=== PATIENT | male | born 1935 | race Caucasian/White ===

== ENCOUNTER 2023-10-25 20:52 | Inpatient (IN) | payer OTHER, SELFPAY ==
[2023-10-25] VITALS (19 sets, daily range): BP systolic 80–137; BP diastolic 40–65; BMI 20.3; BMI 20.1
[2023-10-25 14:37] LABS: % Basophils 0.3 % (0-2); % Eosinophils 0.3 % (0-6); % Immature Granulocytes 0.4 % (0-0.5); % Lymphocytes 10.2 % (20.5-51.1); % Monocytes 6.4 % (1.7-9.3); % Neutrophils 82.4 % (42.2-75.2); Absolute Immature Granulocytes 0.1 10^3/uL (0-0.05); Absolute Lymphocytes 1.3 10^3/uL (1.2-3.4); Absolute Monocytes 0.8 10^3/uL (0.1-0.6); Absolute Neutrophils 10.3 10^3/uL (1.4-6.5); Hematocrit 35.5 % (39.0-52.0); Hemoglobin 12.3 g/dL (13.0-18.0); Mean Corp Hgb Conc. 34.6 g/dL (33.0-37.0); Mean Corpuscular Hgb 32.5 pg (27.0-31.0); Mean Corpuscular Volume 93.9 fL (80.0-94.0); Mean Platelet Volume 9.4 fL (7.4-10.4); Nucleated Red Blood Cells % 0 % (-); Platelet Count 267 10^3/uL (130-400); Red Blood Cell Count 3.78 10^6/uL (4.70-6.10); Red Cell Dist. Width 13.4 % (11.5-14.5); White Blood Cell Count 12.5 10^3/uL (4.8-10.8)
[2023-10-25 14:52] LABS: ALT (SGPT) 13 U/L (0-50); AST (SGOT) 18 U/L (17-59); Albumin 4.6 g/dl (3.5-5.0); Alkaline Phosphatase 68 U/L (38-126); Blood Urea Nitrogen 80 mg/dl (9-20); Calcium 9.8 mg/dl (8.4-10.2); Carbon Dioxide 20 mmol/L (22-30); Chloride 105 mmol/L (98-107); Glucose 112 mg/dl (70-99); Potassium 4.9 mmol/L (3.5-5.1); Sodium 137 mmol/L (135-145); Total Bilirubin 0.7 mg/dl (0.2-1.3); eGFR 22.26
[2023-10-25] MEDS: NSS 1000 IV (15:37)
[2023-10-25] MEDS: OMNIPAQUE 50 ML PO (16:41)
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
--- NOTE | 2023-10-25 19:40 | HPS.HSE ---
Addendum entered and electronically signed by Favian Reyes DO 10/25/23 21:51:
Patient seen and examined independently. Agree with findings and plan as set forth by IZZY Dee.
Patient is an 88y M with PMH significant for dementia who lives alone and who presents for evaluation of generalized weakness, bloody diarrhea and increased confusion. Patient is unsure why he is here or how he came to be here. IZZY obtained
information from sister via phone. Patient noted to be incontinent of bloody diarrhea x past 2 days. He was especially weak today as well and unable to stand / ambulate steadily and thus was brought to the ED for further evaluation.
Ass:
Colitis / Bloody Diarrhea
LGIB secondary to the above
BIBI secondary to the above
Hypovolemic Hypotension secondary to the above
Benign Hypertension
BPH
SDAT
Plan:
Admit for further evaluation and treatment.
Supportive care including IVFs, follow H&H, check stool studies if possible.
GI evaluation.
PPI for now.
PT / OT evaluations for gait safety.
Hold lisinopril and follow for improvement in renal function with volume replacement.
Case Management eval re: discharge planning / dispo.
Original Note:
Family Physician
-
Family Physician: Sydney Quiroz
Chief Complaint
-
bloody stool
History of Present Illness
88 year old with PMH For HTN, BPH, Alzhmiers Dementia presented to us with generalized weakness, diarrhea since yesterday. sisters noticed bloody feces all over on his carpet. he was very tired yesterday. today he was not able to walk today as wells
they found more bloody feces on the carpet. upon my assessment patient is confused. he is not sure why he is here. denied CORTEZ,dizzy or syncopal episode. denied fever, chills, chest pain, sob. denied abdominal pain,n,v. denied dysuria or hematuria.
CT with colitis.noted electrolyte imbalance. hydrating with fluids. admitting for further management.
Medical History
Past Medical History
Past Medical History: Reports Other
Additional Past Medical History:
alzmiers dementia
HTN
BPH
Past Surgical History: Reports None
Social History
Tobacco: Non-smoker
Alcohol: Former
Drug: None
Personal: Single
Living: Alone
Family History
Family History: Not pertinent
Allergies / Home Medications
Allergies reflects when Allergies were last updated in [facility].
Home Medications with original date entered in [facility]
Allergy/Medication List:
Allergies
Allergy/AdvReac Type Severity Reaction Status Date / Time
No Known Allergies Allergy Verified 10/25/23 14:21
Home Medications
cholecalciferol (vitamin D3) 50 mcg (2,000 unit) capsule (Vitamin D3) 50 mcg PO DAILY 10/25/23
lisinopril 20 mg tablet 20 mg PO DAILY 10/25/23
mecobalamin (vitamin B12) 1,000 mcg chewable tablet (B12 Active) 1,000 mcg PO DAILY 10/25/23
memantine ER 21 mg-donepezil 10 mg capsule sprinkle,ext.release 24 hr (Namzaric) 1 cap PO DAILY 10/25/23
tamsulosin 0.4 mg capsule 0.4 mg PO DAILY 10/25/23
Review of Systems
-
Constitutional: Reports No Symptoms
EENT: Reports No Symptoms
Respiratory: Reports No Symptoms
Cardiac: Reports No Symptoms
Abdomen/GI: Reports Diarrhea (bloody)
: Reports No Symptoms
Musculoskeletal: Reports No Symptoms
Skin: Reports No Symptoms
Neurological: Reports No Symptoms
Endocrine: Reports No Symptoms
Hematologic/Lymphatic: Reports No Symptoms
Psych: Reports No Symptoms
Physical Exam
Vital Signs
Vital Signs
Temp Pulse Resp BP Pulse Ox
98.0 F 58 22 135/45 99
10/25/23 14:17 10/25/23 18:45 10/25/23 18:45 10/25/23 18:30 10/25/23 18:45
Physical Exam
General: Well Developed, Well Nourished and No Apparent Distress
HEENT: NormoCephalic, Moist mucous membranes and Atraumatic
Respiratory: Clear
Cardiac: S1/S2 and Regular Rhythm; No Murmur or Rub
GI: Soft, Non Tender, Non Distended and Normal Bowel Sounds; No Organomegaly
Rectal: Deferred by Provider
Musculoskeletal: No Clubbing, No Cyanosis and No Edema
Skin: No Rash
Neuro: AO x 3 and Nonfocal/grossly intact
Psych: Calm
Laboratory Results
-
10/25/23 14:30
10/25/23 14:30
Laboratory Results
Total Bilirubin 0.7 mg/dl (0.2-1.3) 10/25/23 14:30
AST 18 U/L (17-59) 10/25/23 14:30
ALT 13 U/L (0-50) 10/25/23 14:30
Alkaline Phosphatase 68 U/L (38-126) 10/25/23 14:30
Data Reviewed
-
CT Scan: Report Reviewed by me
Lab Data: Labs Reviewed by me
Impression/Plan
-
#GI bleed likely from colitis
-WBCs 12.5, hemoglobin 12.3
-heme positive stools
-CT shows acute on chronic colitis
-hgb stable at 12.3
-trend hgb
-NPO
-IV PPI BID
-GI consulted
#acute kidney injury likely dehydration
-cr 2.7, BUN 80
-trend creatine
# Hypotension on arrival likely from dehydration
-Improved with fluids
-Continue to monitor
# Generalized weakness likely from colitis
-PT/OT consult
# History of hypertension
-Hold lisinopril
# Alzheimer's dementia
-Memantine/Aricept continued
# BPH
-Flomax continued
# DVT prophylaxis
-SCD
# CODE STATUS
-Full code
[2023-10-26] MEDS: NSS (PRESERVATIVE FREE) 10 ML IV ×3 (00:25→20:57)
[2023-10-26] MEDS: PROTONIX IV 40 MG IV ×3 (00:26→20:57)
[2023-10-26] MEDS: NAMENDA 5 MG PO ×3 (00:26→20:55)
--- NOTE | 2023-10-26 00:30 | PTCARENOTE ---
Received patient from ED. Patient AAOx1, not to place or time. Lungs decreased, heart rate reg, no edema, positive pulses. Positive bowel sounds. Patient denies pain. Bed alarm placed for patient safety. Patient verbalized an understanding to ring
for all transfers. Teach back education provided for call ontiveros. Call ontiveros in reach. Patient oriented to the unit.
[2023-10-26 00:49] VITALS: BP 117/47; BP 130/51; BP 87/39; PULSE 59; PULSE 60; PULSE 82
[2023-10-26 06:00] VITALS: BMI 20.1
[2023-10-26 07:39] LABS: Hematocrit 31.3 % (39.0-52.0); Hemoglobin 10.9 g/dL (13.0-18.0)
[2023-10-26 07:40] VITALS: BP 107/37
[2023-10-26 07:42] LABS: Hematocrit 31.2 % (39.0-52.0); Mean Corp Hgb Conc. 35.3 g/dL (33.0-37.0); Mean Corpuscular Hgb 33.8 pg (27.0-31.0); Mean Platelet Volume 9.9 fL (7.4-10.4); Platelet Count 219 10^3/uL (130-400); Red Blood Cell Count 3.25 10^6/uL (4.70-6.10); Red Cell Dist. Width 13.2 % (11.5-14.5); White Blood Cell Count 9.9 10^3/uL (4.8-10.8)
[2023-10-26 07:53] LABS: Blood Urea Nitrogen 71 mg/dl (9-20); Calcium 8.9 mg/dl (8.4-10.2); Carbon Dioxide 22 mmol/L (22-30); Chloride 106 mmol/L (98-107); Estimated Creatinine Clearance 22 ml/min; Glucose 87 mg/dl (70-99); Potassium 4.5 mmol/L (3.5-5.1); Sodium 136 mmol/L (135-145); eGFR 28.46
[2023-10-26 08:50] VITALS: BP 109/41; BP 63/35; BP 91/39; PULSE 112; PULSE 74; PULSE 76
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
--- NOTE | 2023-10-26 09:11 | W.PN.HOSP.TC ---
Addendum entered and electronically signed by Nora Hicks MD 10/26/23 13:11:
Updated sister Roxanna Humphreys (medical POA) [phone] on the phone
Original Note:
Today's Communication/Plan
-
see A/P
Assessment / Plan
Assessment / Plan
HPI: 88 year old with PMH HTN, BPH, Alzheimer Dementia who lives alone; presented with incontinent of bloody diarrhea x past 2 days, generalized weakness and unable to walk.
His sister noticed bloody feces all over his carpet.
A/P:
# Likely acute infectious viral diarrhea which appear to be resolving
# Hypovolemic Hypotension on admission secondary to the above with orthostatic hypotension
# BIBI on likely CKD unclear stage
CT noted probable acute on chronic uncomplicated colitis of the descending and sigmoid colon.
Check stool studies if able
Cont IVF
Check daily orthostatic VS
SCr improved from 2.7 to 2.2
GI consulted from admission
PT OT eval
Advance to regular diet, SPL eval
# Benign Hypertension
Hold lisinopril and follow for improvement in renal functio n with volume replacement.
# BPH
Cont Flomax with holding parameter
# Alzheimer Dementia and lives alone
CM for dispo
DVT ppx: SCD
FC
Dispo: PT OT eval
DW RN
DW GI [employer] COURTESY CLERK
Anticipated Discharge: 24 - 48 hours
Subjective/Interval History
-
Date of Service: October 26, 2023
Objective Data
-
Labs:
Laboratory Results
10/25/23 10/26/23 10/26/23
22:55 07:02 07:02
WBC 9.9
Hgb Cancelled 10.9 L 11.0 L
Hct Cancelled 31.3 L
Plt Count
Sodium
Potassium
Chloride
Carbon Dioxide
BUN
Creatinine
Glucose
Calcium
10/26/23 10/26/23
07:02 10:55
WBC
Hgb Pending
Hct 31.2 L Pending
Plt Count 219
Sodium 136
Potassium 4.5
Chloride 106
Carbon Dioxide 22
BUN 71 H
Creatinine 2.2 H
Glucose 87
Calcium 8.9
Vital Signs:
Vital Signs
Temp Pulse Resp BP Pulse Ox
36.9 C 58 16 107/37 96
10/26/23 07:40 10/26/23 07:40 10/26/23 07:40 10/26/23 07:40 10/26/23 07:40
Review of Systems
-
Unable to obtain full review of systems at this time due to: Dementia
Abdomen/GI: Denies Abdominal Pain or Diarrhea
Physical Exam
-
General: Well Developed, Well Nourished, No Apparent Distress, Comfortable and Conversant; Negative Respiratory Distress
HEENT: Normocephalic, Atraumatic, Nose Appears Normal and Ears Appear Normal; Negative Oxygen
Respiratory: Clear to Auscultation and Non Labored Respirations; Negative Accessory Resp Muscle Use
Cardiac: Regular Rhythm and S1/S2
GI: Soft, Nontender, Nondistended and Normal Bowel Sounds
Skin: Warm and Dry
Neuro: Awake and Alert
Psych: Calm and Apparent Dementia
Data Reviewed
-
CT Scan: Report Reviewed by me
Labs: Labs Reviewed by me
[2023-10-26] MEDS: FLOMAX 0.4 MG PO (09:26)
[2023-10-26] MEDS: ARICEPT 10 MG PO (09:27)
[2023-10-26] MEDS: NSS 1000 IV ×2 (09:49→20:55)
--- NOTE | 2023-10-26 12:07 | PTCARENOTE ---
Spoke to sister Dianne Enriquez about updating her other sister Roxanna Humphreys in regards to her brother's health. Both sisters are POA and reminded to bring in a copy of advanced directives to have on file at the hospital.
[2023-10-26 12:12] VITALS: BP 122/52
[2023-10-26 14:10] LABS: Urine Albumin Negative (Neg - Trace); Urine Bilirubin Negative (Negative); Urine Character Clear (Clear); Urine Color Yellow; Urine Glucose Negative (Negative); Urine Ketone Negative (Negative); Urine Leukocyte Trace (Negative); Urine Nitrite Negative (Negative); Urine Occult Blood Negative (Negative); Urine Specific Gravity 1.015 (<1.030); Urine Urobilinogen Negative (Neg - 1+)
[2023-10-26 14:16] LABS: Urine Bacteria Few (Negative); Urine Hyaline Cast 0-2 /LPF (0-2); Urine Red Blood Cell 0-2 /HPF (0-2); Urine White Cell 0-2 /HPF (0-5)
--- NOTE | 2023-10-26 15:27 | PTOTSP ---
ST Acute Care Evaluation
Pt currently presents with oropharyngeal and esophageal phases of swallow that are WFL for safe PO intake of all solids and liquids. No overt s/s of penetration or aspiration observed at bedside. Please note that silent aspiration cannot be ruled
out at bedside.
Pt also presents with a moderately-severe cognitive linguistic impairment/dementia with a dense L neglect - difficult to determine the extent in which pt is deviated from his baseline, as his baseline is questionable (differing reports from pt, MD
reports, and RN). Additionally, pt's current reduced mentation could also be partially attributed to pt's current dehydration/elevated BUN.
Recommendations:
- Continue with regular solids, thin liquids, meds as tolerated.
- General aspiration precautions.
- No skilled dysphagia services deemed warranted at this time.
- Consider neuro assessment/CT Head given dense L neglect on SLUMS exam.
- ACADEMIC MANAGER to continue to monitor/re-assess cognitive linguistic function as pt's metabolic derangements resolve as well as gather more information from caregivers pertaining to baseline cognitive status to determine whether pt is exhibiting worsening
baseline cognitive status that may benefit from skilled ACADEMIC MANAGER intervention.
[2023-10-26 15:30] VITALS: BP 102/73
[2023-10-26 23:19] VITALS: BP 120/49
[2023-10-27 05:25] LABS: Hematocrit 31.5 % (39.0-52.0); Hemoglobin 10.9 g/dL (13.0-18.0); Mean Corp Hgb Conc. 34.6 g/dL (33.0-37.0); Mean Corpuscular Hgb 33.5 pg (27.0-31.0); Mean Corpuscular Volume 96.9 fL (80.0-94.0); Mean Platelet Volume 9.7 fL (7.4-10.4); Platelet Count 229 10^3/uL (130-400); Red Blood Cell Count 3.25 10^6/uL (4.70-6.10); White Blood Cell Count 9.8 10^3/uL (4.8-10.8)
--- NOTE | 2023-10-27 05:30 | PTCARENOTE ---
Pt aa0x1, very confused and forgetful, restless, removed IV x 2 this shift despite jf dressing applied over site. Medsitter observation in place.
[2023-10-27 05:58] LABS: Blood Urea Nitrogen 56 mg/dl (9-20); Calcium 8.9 mg/dl (8.4-10.2); Carbon Dioxide 21 mmol/L (22-30); Chloride 107 mmol/L (98-107); Estimated Creatinine Clearance 26 ml/min; Glucose 89 mg/dl (70-99); Potassium 4.7 mmol/L (3.5-5.1); Sodium 136 mmol/L (135-145); eGFR 36.21
[2023-10-27 07:48] VITALS: BP 130/54
--- NOTE | 2023-10-27 08:10 | VATNOTE ---
Patient has removed multiple IVs over the past several hours. Spoke with PCN who states she will discuss further IV needs with .
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
[2023-10-27] MEDS: NAMENDA 5 MG PO ×2 (08:35→19:56)
[2023-10-27] MEDS: FLOMAX 0.4 MG PO (08:35)
[2023-10-27] MEDS: ARICEPT 10 MG PO (08:35)
[2023-10-27] MEDS: PROTONIX 40 MG PO ×2 (08:35→19:56)
[2023-10-27] MEDS: NSS (PRESERVATIVE FREE) IV ×2 (08:36→21:32)
[2023-10-27] MEDS: PROTONIX IV IV (08:36)
[2023-10-27 10:31] VITALS: BP 132/60; BP 142/68; BP 156/70; PULSE 101; PULSE 121; PULSE 93
--- NOTE | 2023-10-27 10:42 | CM ---
Initial assessment attempted with pt, though due to increase of confusion, was completed by phone with sister.
Pt is an 88yr old male who lives alone in a 1 level home with 3 steps to enter.
Per sister, pt is indep at baseline with mobility and ADLs, and between herself and 2 other sisters, they aide with most of his IADLs such as medication reminders, shopping, and transportation. Pt does have a cleaning service, meals on wheels and
will use the microwave and Keurig independently.
Pt has no current or hx of use of DME/VN/SNF
PCP; [facility]
PLAN; Sister would like to see him return to home with VN. PT eval is between SNF and Home VN. Continue to follow and support.
[2023-10-27 11:19] VITALS: BP 114/60; PULSE 81; O2SAT 97
--- NOTE | 2023-10-27 11:27 | W.PN.HOSP.TC ---
Today's Communication/Plan
-
see A/P
Assessment / Plan
Assessment / Plan
HPI: 88 year old with PMH HTN, BPH, Alzheimer Dementia who lives alone; presented with incontinent of bloody diarrhea x past 2 days, generalized weakness and unable to walk.
His sister noticed bloody feces all over his carpet.
A/P:
# Likely acute infectious viral diarrhea which is resolving
# Hypovolemic Hypotension on admission secondary to the above with orthostatic hypotension
# BIBI on likely CKD unclear stage
CT noted probable acute on chronic uncomplicated colitis of the descending and sigmoid colon.
Check stool studies if able, diarrhea has resolved
Cont IVF for BIBI
Orthostatic VS improving
SCr improved from 2.7 to 1.8 today
GI consulted from admission
PT OT recc home vs SNF
# Benign Hypertension
Hold lisinopril with BIBI
BP stable
# BPH
Cont Flomax with holding parameter
# Alzheimer Dementia and lives alone
pt is awake but not orientated
started low dose Zyprexa 2.5 mg HS for
CM for dispo
DVT ppx: SCD
FC
Dispo: PT recc home vs SNF
DW RN
updated sister Dianne on the phone
Anticipated Discharge: 24 - 48 hours
Subjective/Interval History
-
Date of Service: October 27, 2023
Objective Data
-
Labs:
Laboratory Results
10/27/23
04:45
WBC 9.8
Hgb 10.9 L
Hct 31.5 L
Plt Count 229
Sodium 136
Potassium 4.7
Chloride 107
Carbon Dioxide 21 L
BUN 56 H
Creatinine 1.8 H
Glucose 89
Calcium 8.9
Vital Signs:
Vital Signs
Temp Pulse Resp BP Pulse Ox
36.8 C 76 12 130/54 100
10/27/23 07:48 10/27/23 07:48 10/27/23 07:48 10/27/23 07:48 10/27/23 07:48
I&O
10/26/23 10/27/23 10/28/23
06:59 06:59 06:59
Intake Total 2200 / 2200
Output Total 200 / 200
Balance 1999
Review of Systems
-
Unable to obtain full review of systems at this time due to: Dementia
Abdomen/GI: Denies Abdominal Pain or Diarrhea
Physical Exam
-
General: Well Developed, Well Nourished, No Apparent Distress, Comfortable and Conversant; Negative Respiratory Distress
HEENT: Normocephalic, Atraumatic, Nose Appears Normal and Ears Appear Normal; Negative Oxygen
Respiratory: Clear to Auscultation and Non Labored Respirations; Negative Accessory Resp Muscle Use
Cardiac: Regular Rhythm and S1/S2
GI: Soft, Nontender, Nondistended and Normal Bowel Sounds
Skin: Warm and Dry
Neuro: Awake and Alert
Psych: Calm and Apparent Dementia
Data Reviewed
-
CT Scan: Report Reviewed by me
Labs: Labs Reviewed by me
[2023-10-27] MEDS: NSS 1000 IV ×2 (13:26→22:37)
[2023-10-27 16:39] VITALS: BP 128/63
[2023-10-27] MEDS: ZYPREXA ZYDIS (ORALLY DISINTEGRATING) 2.5 MG PO (19:56)
[2023-10-27 23:14] VITALS: BP 125/53
[2023-10-28 07:25] LABS: Hematocrit 28.3 % (39.0-52.0); Hemoglobin 9.8 g/dL (13.0-18.0); Mean Corp Hgb Conc. 34.6 g/dL (33.0-37.0); Mean Corpuscular Hgb 32.8 pg (27.0-31.0); Mean Corpuscular Volume 94.6 fL (80.0-94.0); Mean Platelet Volume 9.4 fL (7.4-10.4); Platelet Count 237 10^3/uL (130-400); Red Blood Cell Count 2.99 10^6/uL (4.70-6.10); Red Cell Dist. Width 13.1 % (11.5-14.5); White Blood Cell Count 7.3 10^3/uL (4.8-10.8)
[2023-10-28 07:35] VITALS: BP 92/55
[2023-10-28 08:03] LABS: Blood Urea Nitrogen 36 mg/dl (9-20); Calcium 8.5 mg/dl (8.4-10.2); Carbon Dioxide 21 mmol/L (22-30); Chloride 113 mmol/L (98-107); Estimated Creatinine Clearance 34 ml/min; Glucose 82 mg/dl (70-99); Magnesium 1.6 mg/dl (1.6-2.3); Potassium 4.2 mmol/L (3.5-5.1); Sodium 139 mmol/L (135-145); eGFR 48.95
[2023-10-28] MEDS: NSS (PRESERVATIVE FREE) IV ×2 (08:51→21:44)
[2023-10-28] MEDS: FLOMAX 0.4 MG PO (08:51)
[2023-10-28] MEDS: ARICEPT 10 MG PO (08:51)
[2023-10-28] MEDS: PROTONIX 40 MG PO ×2 (08:51→21:43)
[2023-10-28] MEDS: NSS 1000 IV (08:51)
[2023-10-28] MEDS: NAMENDA 5 MG PO ×2 (08:51→21:41)
[2023-10-28 09:12] VITALS: BP 114/45
--- NOTE | 2023-10-28 11:00 | PTCARENOTE ---
Patient bladder scanned this AM for 458ml, patient drowsy in bed, states he does not feel he has to urinate. made aware, patient straight cathed by this RN with assistance of tech for 550ml yellow colored urine. Patient tolerated procedure,
states no concerns at this time.
--- NOTE | 2023-10-28 11:26 | W.PN.HOSP.TC ---
Today's Communication/Plan
-
monitor vitals
see plan
bladder scan and straight cath as necessary
Sister updated over the phone
Assessment / Plan
Assessment / Plan
HPI: 88 year old with PMH HTN, BPH, Alzheimer Dementia who lives alone; presented with incontinent of bloody diarrhea x past 2 days, generalized weakness and unable to walk.
His sister noticed bloody feces all over his carpet.
A/P:
# Likely acute infectious viral diarrhea which is resolving
# Hypovolemic Hypotension on admission secondary to the above with orthostatic hypotension
# BIBI on likely CKD unclear stage
CT noted probable acute on chronic uncomplicated colitis of the descending and sigmoid colon.
Check stool studies if able, diarrhea has resolved
Cont IVF for BIBI
Orthostatic VS improving
SCr improved from 2.7 to 1.4 today
GI consulted from admission
PT OT rec home vs SNF; family
# Benign Hypertension
Hold lisinopril with BIBI
BP stable
# BPH
Cont Flomax with holding parameter
urinary retention 10/27; s/p straight cath. likely 2/2 lack of ambulation
# Alzheimer Dementia and lives alone
pt is awake but not orientated
started low dose Zyprexa 2.5 mg HS for
CM for dispo
DVT ppx: SCD
FC
Dispo: PT recc home vs SNF; sisters leaning towards home with VN
DW RN
updated sister Dianne on the phone
General: Well Developed, Well Nourished, No Apparent Distress, Comfortable and Conversant; Negative Respiratory Distress
HEENT: Normocephalic, Atraumatic, Nose Appears Normal and Ears Appear Normal; Negative Oxygen
Respiratory: Clear to Auscultation and Non Labored Respirations; Negative Accessory Resp Muscle Use
Cardiac: Regular Rhythm and S1/S2
GI: Soft, Nontender, Nondistended and Normal Bowel Sounds
Skin: Warm and Dry
Neuro: Awake
Psych: Calm and Apparent Dementia
Anticipated Discharge: Within 24 hours
Subjective/Interval History
-
Date of Service: October 28, 2023
denies pain
Objective Data
-
Labs:
Laboratory Results
10/28/23
06:59
WBC 7.3
Hgb 9.8 L
Hct 28.3 L
Plt Count 237
Sodium 139
Potassium 4.2
Chloride 113 H
Carbon Dioxide 21 L
BUN 36 H
Creatinine 1.4 H
Glucose 82
Calcium 8.5
Vital Signs:
Vital Signs
Temp Pulse Resp BP Pulse Ox
97.3 F 98 18 114/45 95
10/28/23 07:35 10/28/23 07:35 10/28/23 07:35 10/28/23 09:12 10/28/23 07:35
I&O
10/27/23 10/28/23 10/29/23
06:59 06:59 06:59
Intake Total 2200 / 2200 3300 / 3300
Output Total 200 / 200 720 / 720
Balance 1999 / 1999 2580 / 2580
[2023-10-28 15:25] VITALS: BP 94/48
[2023-10-28] MEDS: NSS IV (16:02)
--- NOTE | 2023-10-28 16:24 | PTOTSP ---
ST Follow-Up
Pt continues to present with a moderately-severe cognitive linguistic deficit. CM made aware of recommendations for SNF vs 24 hour care/supervision.
Recommendations:
- Continue with cognitive linguistic tx while admitted.
- Continue with cognitive linguistic tx and/or family support scaffolding when discharged.
- Highly recommend 24 hour care HH care vs SNF upon d/c for pt's safety.
[2023-10-28 16:34] VITALS: BP 104/41; PULSE 63; O2SAT 98
--- NOTE | 2023-10-28 16:43 | CM ---
Reviewed the chart notes. PT is recommending SNF, family wants home with VN. CM continues to be available to patient/family and is monitoring medical plan for needs at discharge.
Plan: Discharge plans depend on the patient's progress. He resides alone.
[2023-10-28 17:11] VITALS: BP 101/50
[2023-10-28 23:34] VITALS: BP 125/41
[2023-10-29 06:11] LABS: Hematocrit 28.6 % (39.0-52.0); Hemoglobin 9.9 g/dL (13.0-18.0); Mean Corp Hgb Conc. 34.6 g/dL (33.0-37.0); Mean Corpuscular Hgb 33.6 pg (27.0-31.0); Mean Corpuscular Volume 96.9 fL (80.0-94.0); Mean Platelet Volume 10.1 fL (7.4-10.4); Platelet Count 209 10^3/uL (130-400); Red Blood Cell Count 2.95 10^6/uL (4.70-6.10); Red Cell Dist. Width 13.2 % (11.5-14.5); White Blood Cell Count 6.8 10^3/uL (4.8-10.8)
[2023-10-29 06:37] LABS: Blood Urea Nitrogen 30 mg/dl (9-20); Calcium 8.7 mg/dl (8.4-10.2); Carbon Dioxide 20 mmol/L (22-30); Chloride 112 mmol/L (98-107); Estimated Creatinine Clearance 40 ml/min; Glucose 83 mg/dl (70-99); Potassium 4.3 mmol/L (3.5-5.1); Sodium 139 mmol/L (135-145); eGFR 58.89
[2023-10-29 07:30] VITALS: BP 116/37
[2023-10-29] MEDS: PROTONIX 40 MG PO ×2 (08:39→21:04)
[2023-10-29] MEDS: FLOMAX 0.4 MG PO (08:39)
[2023-10-29] MEDS: ARICEPT 10 MG PO (08:39)
[2023-10-29] MEDS: DESENEX/MITRAZOL/ZEASORB 1 APPLIC TOPICAL ×2 (08:39→21:05)
[2023-10-29] MEDS: NAMENDA 5 MG PO ×2 (08:39→21:04)
--- NOTE | 2023-10-29 10:47 | W.PN.HOSP.TC ---
Addendum entered and electronically signed by Atul Kaur MD 10/29/23 15:39:
Notified by manager of case that both sisters now wants SNF. Awaiting SNF.
Addendum entered and electronically signed by Atul Kaur MD 10/29/23 12:21:
Spoke with POA. Discharge today
Time of discharge 38 minutes
Original Note:
Today's Communication/Plan
-
Monitor vital signs
see plan
Discharge today
Called sister, left voicemail
Monitor renal function; continue to hold lisinopril
Assessment / Plan
Assessment / Plan
HPI: 88 year old with PMH HTN, BPH, Alzheimer Dementia who lives alone; presented with incontinent of bloody diarrhea x past 2 days, generalized weakness and unable to walk.
His sister noticed bloody feces all over his carpet.
A/P:
# Likely acute infectious viral diarrhea which is resolving
# Hypovolemic Hypotension on admission secondary to the above with orthostatic hypotension
# BIBI on likely CKD unclear stage
CT noted probable acute on chronic uncomplicated colitis of the descending and sigmoid colon.
Check stool studies if able, diarrhea has resolved
Cont IVF for BIBI
Orthostatic VS improving
SCr improved from 2.7 to 1.2 today
GI consulted from admission
PT OT rec home vs SNF; family prefers home
# Benign Hypertension
Hold lisinopril with renal insufficiency and currently normotensive
BP stable
# BPH
Cont Flomax with holding parameter
urinary retention 10/27; s/p straight cath. likely 2/2 lack of ambulation; per RN now he is voiding
# Alzheimer Dementia and lives alone
pt is awake but not orientated
started low dose Zyprexa 2.5 mg HS prn for ; did not require last night. Would not continue on discharge
CM for dispo
DVT ppx: SCD
FC
Dispo: PT rec home vs SNF; sisters leaning towards home with VN
DW RN
updated sister Dianne on the phone
General: Well Developed, Well Nourished, No Apparent Distress, Comfortable and Conversant; Negative Respiratory Distress
HEENT: Normocephalic, Atraumatic, Nose Appears Normal and Ears Appear Normal; Negative Oxygen
Respiratory: Clear to Auscultation and Non Labored Respirations; Negative Accessory Resp Muscle Use
Cardiac: Regular Rhythm and S1/S2
GI: Soft, Nontender, Nondistended and Normal Bowel Sounds
Skin: Warm and Dry
Neuro: Awake
Psych: Calm and Apparent Dementia
Anticipated Discharge: Today
Subjective/Interval History
-
Date of Service: October 29, 2023
denies pain
Objective Data
-
Labs:
Laboratory Results
10/29/23
05:25
WBC 6.8
Hgb 9.9 L
Hct 28.6 L
Plt Count 209
Sodium 139
Potassium 4.3
Chloride 112 H
Carbon Dioxide 20 L
BUN 30 H
Creatinine 1.2
Glucose 83
Calcium 8.7
Vital Signs:
Vital Signs
Temp Pulse Resp BP Pulse Ox
98.0 F 60 16 116/37 94
10/29/23 07:30 10/29/23 07:30 10/29/23 07:30 10/29/23 07:30 10/29/23 07:30
I&O
10/28/23 10/29/23 10/30/23
06:59 06:59 06:59
Intake Total 3300 / 3300 1860 / 1860
Output Total 720 / 720 750 / 750
Balance 2580 / 2580 1110 / 1110
--- NOTE | 2023-10-29 12:25 | W.DCSUMMARY ---
Discharge Summary
Discharge Data
Date of Admission: 10/25/23
Date of Discharge: 10/30/23
-
Pending Results: No
Hospital Course
88-year-old male with past medical history of Alzheimer's dementia, BPH, hypertension came to the hospital with acute diarrhea along with hypovolemic hypotension which over time continue to improve with fluids. Patient diarrhea also continue to
improve. CT scan was done which showed acute on chronic uncomplicated colitis. Patient was seen by GI throughout hospitalization. It was thought that patient likely had acute infectious viral diarrhea. Patient also had elevated creatinine which
over time continue to improve. Since his blood pressure was in normotension range his lisinopril was held on discharge. He also had mild urinary retention which over time continue to improve. He was also evaluated by physical therapy who
initially recommended SNF however due to his improvement prior to discharge physical therapy recommended home health. Once patient symptoms continue to improve he was then discharged home with instructions to follow-up with all his physicians
outpatient.
Discharge Plan
-
Patient Disposition: Home (Routine Discharge)
Discharge Diagnosis/Procedures: Likely acute infectious viral diarrhea
Dehydration
Acute kidney injury
BPH
Condition: Good
Diet: As tolerated
Activity: With assistance and As tolerated
Driving Restrictions: Not until seen by your Dr
Bathing Restrictions: None
Referrals:
Alysha Potter MD [Active] - (follow up to review with recent colitis )
Sydney Quiroz MD [Family Provider] - in less than 1 week
Prescriptions:
New
miconazole nitrate [Miconazorb AF] 2 % Powder
1 applic topical BID Qty: 85 0RF
pantoprazole 40 mg Tablet,Delayed Release (Dr/Ec)
40 mg PO BID Qty: 60 0RF
Continued
tamsulosin 0.4 mg Capsule
0.4 mg PO DAILY
cholecalciferol (vitamin D3) [Vitamin D3] 50 mcg (2,000 unit) Capsule
50 mcg PO DAILY
mecobalamin (vitamin B12) [B12 Active] 1,000 mcg Tablet,Chewable
1,000 mcg PO DAILY
Namzaric 21-10 mg Capsule,Sprinkle,Er 24hr
1 cap PO DAILY
Held
lisinopril 20 mg Tablet
20 mg PO DAILY
Hold Instructions: Restart when blood pressure is greater than 140/90
Discharge Orders:
Discharge Patient (As Directed); Ordered 10/30/23
Ordered By: Atul Kaur
Discharge Date and Time
Discharge Date/Time: 10/30/23 14:07
Print Language: MACANESE
--- NOTE | 2023-10-29 15:26 | CM ---
Addendum entered by Elsi Pickard RN 10/29/23 16:04:
IMM reviewed with sister Felecia.
Original Note:
Reviewed the chart notes and spoke with the patient's sisters via telephone Felecia and Dianne. They are now in agreement with short term SNF. Referrals were sent to [facility] per request from Dianne since she resides in [place]. [facility] are willing to accept the patient. Sisters will discuss which would be best and report their wish to CM. CM continues to be available to patient/family and is monitoring medical plan for needs at discharge.
Plan: Discharge to SNf/rehab once bed found and precert obtained.
[2023-10-29 15:40] VITALS: BP 114/49
[2023-10-29 23:19] VITALS: BP 145/60
--- NOTE | 2023-10-30 03:05 | DOWNTIME ---
There was a Runa Client [employer] Downtime on 10/30/2023 from 0100 to 10/30/2023 at 0255. Downtime documentation of patient's care, including medication administrations, has been reconciled in the electronic record per guidelines. Refer to the
patient's paper chart under the miscellaneous tab to see printed paper medication records and downtime forms.
[2023-10-30 06:48] LABS: Hematocrit 28.3 % (39.0-52.0); Hemoglobin 9.8 g/dL (13.0-18.0); Mean Corp Hgb Conc. 34.6 g/dL (33.0-37.0); Mean Corpuscular Hgb 32.5 pg (27.0-31.0); Mean Corpuscular Volume 93.7 fL (80.0-94.0); Mean Platelet Volume 9.4 fL (7.4-10.4); Platelet Count 227 10^3/uL (130-400); Red Blood Cell Count 3.02 10^6/uL (4.70-6.10); Red Cell Dist. Width 13.2 % (11.5-14.5); White Blood Cell Count 6.8 10^3/uL (4.8-10.8)
[2023-10-30 07:13] LABS: Blood Urea Nitrogen 23 mg/dl (9-20); Calcium 8.9 mg/dl (8.4-10.2); Carbon Dioxide 24 mmol/L (22-30); Chloride 109 mmol/L (98-107); Estimated Creatinine Clearance 40 ml/min; Glucose 83 mg/dl (70-99); Sodium 137 mmol/L (135-145); eGFR 58.89
[2023-10-30 07:35] VITALS: BP 120/62
[2023-10-30] MEDS: NAMENDA 5 MG PO (08:28)
[2023-10-30] MEDS: FLOMAX 0.4 MG PO (08:28)
[2023-10-30] MEDS: ARICEPT 10 MG PO (08:28)
[2023-10-30] MEDS: PROTONIX 40 MG PO (08:28)
[2023-10-30] MEDS: DESENEX/MITRAZOL/ZEASORB 1 APPLIC TOPICAL (08:30)
--- NOTE | 2023-10-30 10:35 | W.PN.HOSP.TC ---
Addendum entered and electronically signed by Atul Kaur MD 10/30/23 12:35:
Per physical therapy, patient is not doing better and is recommending home health. finish production manager spoke with sisters and plan now to go home with VN. Called Nay (Sister), could not leave voicemail as it is full.
Time of discharge 38 minutes
Original Note:
Today's Communication/Plan
-
Monitor vital signs see plan
Discharge planning, family now wants SNF. finish production manager involved
dc when has placement
monitor renal function
Assessment / Plan
Assessment / Plan
HPI: 88 year old with PMH HTN, BPH, Alzheimer Dementia who lives alone; presented with incontinent of bloody diarrhea x past 2 days, generalized weakness and unable to walk.
His sister noticed bloody feces all over his carpet.
A/P:
# Likely acute infectious viral diarrhea which is resolving
# Hypovolemic Hypotension on admission secondary to the above with orthostatic hypotension
# BIBI on likely CKD unclear stage
CT noted probable acute on chronic uncomplicated colitis of the descending and sigmoid colon.
Check stool studies if able, diarrhea has resolved
Cont IVF for BIBI
Orthostatic VS improving
SCr improved from 2.7 to 1.2 today
GI consulted from admission
PT OT rec home vs SNF; family prefers home
# Benign Hypertension
Hold lisinopril with renal insufficiency and currently normotensive
BP stable
# BPH
Cont Flomax with holding parameter
urinary retention 10/27; s/p straight cath. likely 2/2 lack of ambulation; per RN now he is voiding
# Alzheimer Dementia and lives alone
pt is awake but not orientated
started low dose Zyprexa 2.5 mg HS prn for ; did not require last night. Would not continue on discharge
CM for dispo
DVT ppx: SCD
FC
Dispo: PT rec home vs SNF; Family now wants SNF
General: Well Developed, Well Nourished, No Apparent Distress, Comfortable and Conversant; Negative Respiratory Distress
HEENT: Normocephalic, Atraumatic, Nose Appears Normal and Ears Appear Normal; Negative Oxygen
Respiratory: Clear to Auscultation and Non Labored Respirations; Negative Accessory Resp Muscle Use
Cardiac: Regular Rhythm and S1/S2
GI: Soft, Nontender, Nondistended and Normal Bowel Sounds
Skin: Warm and Dry
Neuro: Awake
Psych: Calm and Apparent Dementia
Anticipated Discharge: Today
Subjective/Interval History
-
Date of Service: October 30, 2023
denies pain
Objective Data
-
Labs:
Laboratory Results
10/30/23
06:22
WBC 6.8
Hgb 9.8 L
Hct 28.3 L
Plt Count 227
Sodium 137
Potassium 4.0
Chloride 109 H
Carbon Dioxide 24
BUN 23 H
Creatinine 1.2
Glucose 83
Calcium 8.9
Vital Signs:
Vital Signs
Temp Pulse Resp BP Pulse Ox
98.1 F 110 18 120/62 98
10/30/23 07:35 10/30/23 07:35 10/30/23 07:35 10/30/23 07:35 10/30/23 07:35
I&O
10/29/23 10/30/23 10/31/23
06:59 06:59 06:59
Intake Total 1860 / 1860 960 / 960
Output Total 750 / 750 200 / 200
Balance 1110 / 1110 760 / 760
--- NOTE | 2023-10-30 11:01 | CM ---
Reviewed the chart notes. Message left for sister Nay regarding need to obtain name of chosen facility so auth can be initiated.
[2023-10-30 11:58] VITALS: BP 155/68; PULSE 93; O2SAT 96
[2023-10-30 12:01] VITALS: BP 155/68
--- NOTE | 2023-10-30 12:43 | CM ---
Addendum entered by Elsi Pickard RN 10/30/23 12:56:
This referral has been accepted for the [facility] office.
Fax report to: ([phone])
Original Note:
Reviewed the chart notes and spoke with the patient's sister Nay ([phone]) via telephone. Patient did well today with PT. Ambulating the hallway and room ad krystian. Plan now is home with [facility]. Referral sent. Sister Dianne will
transport the patient home. CM continues to be available to patient/family and is monitoring medical plan for needs at discharge.
Plan: Discharge to home with [facility].
[2023-10-30 13:50] VITALS: BP 142/66
== END 2023-10-30 14:07 | disposition home health service (06) | DRG 392 ==
LOC: 2 NORTH 20:52
PROVIDERS: Emergency Medicine; Registered Nurse; ADMITTING PHYSICIAN Hospitalist; ATTENDING PHYSICIAN Internal Medicine; CONSULT PHYSICIAN Internal Medicine; EMERGENCY PHYSICIAN Emergency Medicine; FAMILY PHYSICIAN Internal Medicine
DX: A09 Infectious gastroenteritis and colitis, unspecified (principal); N17.9 Acute kidney failure, unspecified; F03.918 Unspecified dementia, unspecified severity, with other behavioral disturbance; I95.9 Hypotension, unspecified; I10 Essential (primary) hypertension; N40.0 Benign prostatic hyperplasia without lower urinary tract symptoms
CPT/HCPCS: 70450; 74176; 80048; 80053; 81003; 81015; 83735; 85014; 85018; 85025; 85027; 86850; 86900; 86901; 89055; 92507; 92523; 92610; 93005; 96360; 97162; 97167; 97530; 97535; 99285